=== PATIENT | female | born 1980 | race Two or more races ===

== ENCOUNTER 2021-04-22 08:48 | Emergency (ER) | payer SELFPAY ==
[~2021-04-22] VITALS: Ht 157.5 cm; Wt 71.4 kg
[2021-04-22] MEDS ORDERED: diphenhydrAMINE 50 MG/ML VIAL IVP ONE (09:15)
[2021-04-22] MEDS ORDERED: IV NORMAL SALINE 1000ML BAG 1,000 ML IV ONE (09:15)
[2021-04-22] MEDS ORDERED: DEXAMETHASONE SOD PHOS 20 MG/5 ML VIAL. IV ONE (09:15)
[2021-04-22] MEDS ORDERED: PROCHLORPERAZINE 10 MG/2 ML VIAL. IV ONE (09:15)
--- NOTE | 2021-04-22 09:28 | PHYS DOC ---
Past Medical History Past Surgical History: Smoking Status: Never Smoker Alcohol Use: None General Adult EDM: Chief Complaint: HEADACHE HPI: HPI: 41 yo F PMH HTN and migraine headaches, presents to the ed with her , (patient consents to his/her/their knowledge and involvement in pts' medical care), with complaints of intermittent, waxing and waning headache at the top of her head with associated nausea, vomiting and dizziness stating she feels as if she is uneasy on her feet/walking, for the past 6 days. Patient reports no relief with Excedrin migraine headache (apap, asa & caffeine) and ibuprofen- states the aspirin makes her heart race. Patient takes lisinopril 5 mg daily and vitamin B complex. Denies associated trauma or blunt injury to the head. No associated fever, blurry vision. Just stopped her menstrual period. Denies any alcohol, smoking or illicit drug use. PCP-[facility]. Reports she's never had a migraine this bad and for this long. Last saw her pcp 03/30 for vertigo and left ear infection, states the meclizine prescribed does not help her current dizziness. 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 Review of Systems: Review of Systems: Constitutional: Denies fever or chills. [] Eyes: Denies change in visual acuity. [] HENT: Denies nasal congestion or sore throat. [] Respiratory: Denies cough or shortness of breath. [] Cardiovascular: Denies chest pain or edema. [] GI: Denies abdominal pain, bloody stools or diarrhea. [] : Denies dysuria or vaginal bleeding Musculoskeletal: Denies back pain or joint pain. [] Integument: Denies rash or diaphoresis Neurologic: Denies focal weakness or sensory changes. [] Endocrine: Denies polyuria or polydipsia. [] Lymphatic: Denies swollen glands. [] Psychiatric: Denies depression or anxiety. [] Heart Score: C/O Chest Pain: No Risk Factors: Risk Factors: DM, Current or recent (<one month) smoker, HTN, HLP, family history of CAD, obesity. Risk Scores: Score 0 - 3: 2.5% MACE over next 6 weeks - Discharge Home Score 4 - 6: 20.3% MACE over next 6 weeks - Admit for Clinical Observation Score 7 - 10: 72.7% MACE over next 6 weeks - Early Invasive Strategies Current Medications: Current Medications Medications (Trade) Dose Ordered Sig/Michaela Start Time Stop Time Status Last Admin Dose Admin Dexamethasone Sodium Phosphate (Decadron) 10 mg 1X ONCE 04/22/21 09:15 04/22/21 09:16 DC Diphenhydramine HCl (Benadryl) 25 mg 1X ONCE 04/22/21 09:15 04/22/21 09:16 DC Prochlorperazine Edisylate (Compazine) 10 mg 1X ONCE 04/22/21 09:15 04/22/21 09:16 DC Sodium Chloride 1,000 ml @ 1,000 mls/hr 1X ONCE 04/22/21 09:15 04/22/21 10:14 Allergies: Allergies: Allergies Coded Allergies Type Severity Reaction Last Updated Verified aspirin Adverse Reaction Severe tachycardia 04/22/21 Yes Physical Exam: PE: Constitutional: Appears in pain/is tearful.crying, but not toxic, afebrile, HENT: Normocephalic, atraumatic, moist mucous membranes Eyes: PERRLA, EOMI, conjunctiva normal, no discharge, tearful, no nystagmus Neck: Normal range of motion, supple, no nuchal rigidity or meningismus Cardiovascular: S1/2 present, regular rhythm Lungs & Thorax: Speaking in full sentences, bilateral equal chest rise, no tachypnea or increased work of breathing Abdomen: soft, no tenderness, Skin: Warm, dry, no erythema, no rash. [] Back: No tenderness, no CVA tenderness. [] Extremities: No tenderness, no cyanosis, Neurologic: Alert and oriented X 3, CN2-12 intact, FNF/DERRICK intact, normal motor function, normal sensory function, no focal deficits noted. [] HINTS exam performed with active persistent vertigo. Exam negative for central pathology. Pt with no vertical nystagmus (horizontal nystagmus and lack of nystagmus consistent with peripheral vertigo), normal corrective saccade with head impulse test and no skew deviation. Psychologic: Affect normal, judgement normal, mood normal. [] Current Patient Data: Vital Signs: Vital Signs Date Time Temp Pulse Resp B/P (MAP) Pulse Ox O2 Delivery O2 Flow Rate FiO2 04/22/21 09:04 98.5 84 16 122/84 (97) 99 Room Air 98.5 EKG: EKG: [] Radiology/Procedures: Radiology/Procedures: IMAGING REPORT Signed PATIENT: ELVIA IYER ACCOUNT: [id number] : 1980 LOCATION: ER AGE: 41 SEX: F EXAM STATUS: REG ER ORD. PHYSICIAN: SONDRA MARAVILLA DO REASON: headache PROCEDURE: CT HEAD WO CONTRAST Site ID: [id number] EXAMINATION: CT HEAD/BRAIN WO. TECHNIQUE: Noncontrast axial images of the brain were obtained with coronal and sagittal reconstructions. One or more of the following radiation dose reduction techniques was used: automated exposure control, adjustment of mA and/or KV according to patient size, and/or utilization of iterative reconstruction technique. HISTORY: 41 years Female Reason: headache . FINDINGS: There is no intracranial hemorrhage, edema or mass effect. The brain parenchyma appears unremarkable. Size of the ventricles is appropriate. There is complete opacification of the partially evaluated the left maxillary sinus. IMPRESSION: 1. No intracranial process. 2. The left maxillary sinus visualized portion is a completely opacified. ENT follow-up is recommended. Electronically signed by: Dominga Gunn MD (04/22/2021 9:56 AM) [id number] DICTATED and SIGNED BY: DOMINGA GUNN MD DATE: 04/22/21 [id number] 0 Course & Med Decision Making: Course & Med Decision Making Pertinent Labs and Imaging studies reviewed. (See chart for details) On reevaluation patient states " I have no pain," was sleeping comfortably, is i n no distress and nontoxic-appearing. Patient with no nystagmus. Patient with normal neurologic exam. Pt HD stable and afebrile, not . Will discharge home with strict ED return precautions were given for recurrent headache, trauma, neurologic deficits or blurred vision, fever or neck stiffness. 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 Life-threatening processes were considered but are low suspicion at this time, given history, physical exam and ED workup. Pt was educated on all prescription medications and adverse effects. All patient's questions were answered and pt was stable at time of discharge. Life/limb-threatening differential includes but is not limited to, meningitis, encephalitis, intracranial hemorrhage, obstructive hydrocephaly, CVA, carbon monoxide poisoning, cerebral or cavernous venous thrombosis, hypertensive emergency, preeclampsia, giant cell arteritis, glaucoma, carotid or vertebral artery dissection, superior vena cava syndrome, infection, optic neuritis, or space-occupying lesions. I have spoken with the patient and/or caregivers. I explained the patient's condition, diagnoses and treatment plan based on the information available to me at this time. I have answered the patient and/or caregiver's questions and addressed any concerns. The patient and/or caregivers have a good understanding of patient's diagnosis, condition and treatment plan as can be expected at this point. Vital signs have been stable. Patient's condition is stable and appropriate for discharge from the emergency department. Patient will pursue further outpatient evaluation with primary care physician or other designated or consulting physician as outlined in the discharge instructions. The patient and/or caregivers are agreeable to this plan of care and follow-up instructions have been explained in detail. The patient and/or caregivers have received these instructions in written form and have expressed an understanding of the discharge instructions. The patient and/or caregivers are aware that any significant change of condition or worsening of symptoms should prompt immediate return to this or the closest emergency department or call to 911. Haroon Disclaimer: Haoron Disclaimer: This electronic medical record was generated, in whole or in part, using a voice recognition dictation system. Departure Departure Impression: Primary Impression: Migraine headache Disposition: HOME / SELF CARE / HOMELESS Referrals: RENE CHAPMAN MD Follow-up with your primary care physician in 24 to 48 hours OR FOLLOW UP WITH FAMILY MEDICINE: [address] [facility], [facility] [address] [place] [address] Patient Instructions: General Headache Without Cause, Migraine Headache Additional Instructions: FOLLOW UP WITH NEUROLOGY: FOR DEFINITIVE MANAGEMENT [facility] [address] [facility], [facility] [address] [place] [address] EMERGENCY DEPARTMENT GENERAL DISCHARGE INSTRUCTIONS Thank you for coming to [facility] Emergency Department (ED) today and trusting us with you care. We trust that you had a positive experience in our Emergency Department. If you wish to speak to the department management, you may call the Director at [phone]. YOUR FOLLOW UP INSTRUCTIONS ARE FOLLOWS: 1. Do you have a private Doctor? If you do not have a private doctor, please ask for a resource list of physicians or clinics that may be able to assist you with follow up care. 2. The Emergency Physicain has interpreted your x-rays. The X-Ray specialist will also review them. If there is a change in the findings, you will be notified in 48 hours when at all possible. 3. A lab test or culture has been done, your results will be reviewed and you will be notified if you need a change in treatment. ADDITIONAL INSTRUCTIONS AND INFORMATION: 1. Your care today has been supervised by a physician who is specially trained in emergency care. Many problems require more than one evaluation for a complete diagnosis and treatment. We recommend that you schedule your follow up appointment as recommended to ensure complete treatment of you illness or injury. If you are unable to obtain follow up care and continue to have a problem, or if your condition worsens, we recommend that you return to the ED. 2. We are not able to safely determine your condition over the phone nor are we able to give sound medical advice over the phone. For these safety reasons, if you call for medical advice we will ask you to come to the ED for further evaluation. 3. If you have any questions regarding these discharge instructions please call the ED at [phone]. SAFETY INFORMATION: In the interest of safety, wellness, and injury prevention; we encourage you to wear your sealbelt, if you smoke; quite smoking, and we encourage family to use a protective helmet for bicycling and other sporting events that present an increased risk for head injury. IF YOUR SYMPTOMS WORSEN OR NEW SYMPTOMS DEVELOP, OR YOU HAVE CONCERNS ABOUT YOUR CONDITION; OR IF YOUR CONDITION WORSENS WHILE YOU ARE WAITING FOR YOUR FOLLOW UP APPOINTMENT; EITHER CONTACT YOUR PRIMARY CARE DOCTOR, THE PHYSICIAN WHOSE NAME AND NUMBER YOU WERE GIVEN, OR RETURN TO THE ED IMMEDIATELY. SONDRA MARAVILLA DO Apr 22, 2021 09:28
[2021-04-22] MEDS ORDERED: diazePAM 5 MG TABLET PO ONE (09:30)
--- NOTE | 2021-04-22 09:58 | RAD ---
Site ID: [id number] EXAMINATION: CT HEAD/BRAIN WO. TECHNIQUE: Noncontrast axial images of the brain were obtained with coronal and sagittal reconstructi ons. One or more of the following radiation dose reduction techniques was used: automated exposure control , adjustment of mA and/or KV according to patient size, and/or utilization of iterative reconstructio n technique. HISTORY: 41 years Female Reason: headache . FINDINGS: There is no intracranial hemorrhage, edema or mass effect. The brain parenchyma appears un remarkable. Size of the ventricles is appropriate. There is complete opacification of the partially evaluated the left maxillary sinus. IMPRESSION: 1. No intracranial process. 2. The left maxillary sinus visualized portion is a completely opacified. ENT follow-up is michelle cervantes Electronically signed by: Federico Gunn MD (04/22/2021 9:56 AM) [id number]
[2021-04-22] MEDS ORDERED: KETOROLAC 15 MG/ML VIAL. IVP ONE (11:30)
[2021-04-22 12:11] VITALS: BP 109/61
== END 2021-04-22 12:11 | disposition home or self-care (01) ==
LOC: ER 08:48
DX: G43.909 Migraine, unspecified, not intractable, without status migrainosus (principal); Z88.6 Allergy status to analgesic agent
CPT/HCPCS: 70450; 81025; 96361; 96374; 96375; 99285; J0780; J1100; J1200; J1885; J7030